=== PATIENT | male | born 1995 | race Caucasian/White ===

== ENCOUNTER 2020-06-17 10:25 | Emergency (ER) | payer SELFPAY ==
[~2020-06-17] VITALS: Ht 175.3 cm; Wt 84.0 kg
[2020-06-17] MEDS ORDERED: CYCL10TA2 PO (12:10)
[2020-06-17] MEDS ORDERED: GABA300C18 PO (12:10)
[2020-06-17] MEDS ORDERED: METH4TAB2 PO (12:10)
[2020-06-17] MEDS ORDERED: NAPR-514 PO (12:10)
--- NOTE | 2020-06-17 12:10 | PHYS DOC ---
Past Medical History Past Medical History: No Pertinent History (ALIA JUDD APRN) Past Surgical History: No Surgical History (ALIA JUDD APRN) Smoking Status: Current Every Day Smoker Alcohol Use: Occasionally (ALIA JUDD APRN) General Adult EDM: Chief Complaint: UPPER EXTREMITY PAIN HPI: HPI: Patient is a 25 year old male patient who presents to the ED today complaining of a sensation of numbness and tingling only when he touches the left upper extremity from the elbow to the wrist. Patient states symptoms began yesterday. 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 Denies any injury. Denies any chest pain, shortness of breath, neck pain, pain radiating from the neck to the upper extremity. He states symptoms are not bad unless he touches the left forearm. (ALIA JUDD APRN) Review of Systems: Review of Systems: Constitutional: Denies fever or chills. [] Musculoskeletal: Reports numbness and tingling to the left upper extremity from the elbow to the left forearm Integument: Denies rash. [] Neurologic: Denies headache, focal weakness or sensory changes. [] Psychiatric: Denies depression or anxiety. [] (ALIA JUDD APRN) Heart Score: Risk Factors: Risk Factors: DM, Current or recent (<one month) smoker, HTN, HLP, family history of CAD, obesity. Risk Scores: Score 0 - 3: 2.5% MACE over next 6 weeks - Discharge Home Score 4 - 6: 20.3% MACE over next 6 weeks - Admit for Clinical Observation Score 7 - 10: 72.7% MACE over next 6 weeks - Early Invasive Strategies (ALIA JUDD APRN) Allergies: Allergies: Allergies Coded Allergies Type Severity Reaction Last Updated Verified No Known Drug Allergies 06/17/20 No (ALIA JUDD APRN) Physical Exam: PE: Constitutional: Well developed, well nourished, no acute distress, non-toxic appearance. [] Skin: Warm, dry, no erythema, no rash. [] Back: No tenderness, no CVA tenderness. [] Extremities: No tenderness, no cyanosis, no clubbing, ROM intact, no edema. [] Neurologic: Alert and oriented X 3, normal motor function, normal sensory function, no focal deficits noted. [] Psychologic: Affect normal, judgement normal, mood normal. [] (ALIA JUDD APRN) Current Patient Data: Vital Signs: Vital Signs Date Time Temp Pulse Resp B/P (MAP) Pulse Ox O2 Delivery O2 Flow Rate FiO2 06/17/20 10:37 98.5 78 16 134/80 (98) 98 Room Air 98.5 (ALIA JUDD APRN) EKG: EKG: [] (ALIA JUDD APRN) Radiology/Procedures: Radiology/Procedures: [] (ALIA JUDD APRN) Course & Med Decision Making: Course & Med Decision Making Pertinent Labs and Imaging studies reviewed. (See chart for details) This is a 25-year-old male patient presented to the ED today with numbness from the left elbow to the left wrist, symptoms began yesterday. 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 Patient likely has tennis elbow from the tali job he does. Discharged on naproxen, gabapentin, Medrol Dosepak and cyclobenzaprine. Follow- up with PCP in the course of this week or orthopedic doctor. (ALIA JUDD APRN) Dragon Disclaimer: Dragon Disclaimer: This electronic medical record was generated, in whole or in part, using a voice recognition dictation system. (ALIA JUDD APRN) Departure Departure Impression: Primary Impression: Tennis elbow syndrome Qualified Codes: M77.12 - Lateral epicondylitis, left elbow Additional Impression: Radicular pain in left arm Disposition: 01 DC HOME SELF CARE/HOMELESS Condition: STABLE Referrals: NO PCP (PCP) DRAKE LOWE MD follow up in 1 week Patient Instructions: Radicular Pain, Tennis Elbow, [id number] Additional Instructions: You were seen in the emergency room with numbness and tingling to the left upper extremity, this symptoms are consistent with tennis elbow/overuse syndrome of the elbow joint that causes numbness and or tingling. Use the prescribed medica tions as ordered. Follow-up with orthopedic doctor provided or your own doctor in 1 to 2 weeks. Scripts Naproxen (NAPROXEN) 500 Mg Tablet 1 TAB PO BID for pain, #30 TAB 0 Refills Prov: ALIA JUDD APRN 06/17/20 Cyclobenzaprine Hcl (CYCLOBENZAPRINE HCL) 10 Mg Tablet 1 TAB PO TID, #30 TAB Prov: ALIA JUDD CHRIS 06/17/20 Methylprednisolone (MEDROL) 4 Mg Tab.ds.pk 1 PKG PO UD, #1 PKG Prov: ALIA JUDD BOB[employer] CLE[employer] 06/17/20 Gabapentin (GABAPENTIN ) 300 Mg Capsule 300 MG PO TID for NEUROGENIC PAIN, #30 CAP Prov: GEETAANDRIAALIA APRN 06/17/20 Attending Signature Attending Signature I have reviewed the PA/STILL CLEANER TUBE's note and plan of care. I was available for consultation as needed during the patient's visit in the emergency department. I agree with the clinical impression, plan, and disposition. (TIFFANY SEALS DO) BINTAALIA PEREZ Jun 17, 2020 12:10 TIFFANY SEALS DO Jun 17, 2020 19:47
[2020-06-17 12:25] VITALS: BP 144/88
== END 2020-06-17 12:25 | disposition home or self-care (01) ==
LOC: ER 10:25
DX: M77.12 Lateral epicondylitis, left elbow (principal); M79.602 Pain in left arm; F17.200 Nicotine dependence, unspecified, uncomplicated; R20.2 Paresthesia of skin
CPT/HCPCS: 99283